=== PATIENT | female | born 1975 | race African-American/Black ===

== ENCOUNTER 2024-09-13 08:12 | Inpatient (IN) | payer BC, MEDICAID, MEDICARE ==
[~2024-09-13] VITALS: Ht 170.2 cm; Wt 80.3 kg
[2024-09-13 08:17] VITALS: O2SAT 99
[2024-09-13] MEDS: LEVETIRACETAM 500MG PREMIX 100 ML IV ONE ×2 (08:30→09:03)
[2024-09-13 09:12] LABS: BASOPHILS % 0.5 % (0.0-2.0); EOSINOPHILS % 0.4 % (0.0-5.0); HEMATOCRIT. 42.9 % (36.0-48.0); HEMOGLOBIN. 14.4 g/dL (12.0-16.0); LYMPHOCYTES % 18.9 % (20.0-50.0); MEAN PLATELET VOLUME 7.2 fl (7.4-10.4); MONOCYTES % 3.6 % (2.0-8.0); NEUTROPHILS % 76.6 % (40.0-76.0); PLATELET 262 x1000/uL (130-400); RED BLOOD CELL COUNT 4.60 mill/uL (4.2-5.4); RED CELL DISTRIBUTION WIDTH 14.4 % (11.6-14.6)
[2024-09-13 09:26] LABS: CREATININE 1.1 mg/dL (0.6-1.0)
[2024-09-13 09:27] LABS: UREA NITROGEN BLOOD 21 mg/dL (9-23)
[2024-09-13 09:28] LABS: ASPARTATE AMINOTRANSFERASE 16 IU/L (<34)
[2024-09-13 09:29] LABS: BILIRUBIN TOTAL 0.7 mg/dL (0.1-1.0); PROTEIN TOTAL 7.2 g/dL (6.0-8.3)
[2024-09-13 09:33] LABS: HCG SCREEN POSITIVE
[2024-09-13] MEDS ORDERED: DOCUSATE SODIUM 100MG CAPSULE PO PRN (13:00)
[2024-09-13] MEDS ORDERED: ACETAMINOPHEN 325MG TABLET PO PRN (13:00)
[2024-09-13] MEDS ORDERED: IPRATROPIUM/ALBUTEROL 0.5-3(2.5)MG/3ML NEB HHN PRN (13:00)
[2024-09-13] MEDS ORDERED: LORAZEPAM 2MG/ML UD SYRINGE IV PRN (13:00)
[2024-09-13 14:05] VITALS: BP 156/77; PULSE 45; RESP 16; TEMP 36.5292
[2024-09-13] MEDS: SODIUM CHLORIDE 0.9% 1,000 ML IV SCH (15:42)
[2024-09-13 16:00] VITALS: BP 130/74; PULSE 45; RESP 20; TEMP 36.7; O2SAT 99
[2024-09-13 18:45] LABS: PHOSPHORUS 2.6 mg/dL (2.5-4.9)
[2024-09-13 20:00] VITALS: BP 130/66; PULSE 42; RESP 20; TEMP 36.6; O2SAT 100
[2024-09-13 22:24] LABS: TROPONIN I HIGH SENSITIVITY 5 ng/L (3.0-34)
[2024-09-13] MEDS: ACETAMINOPHEN 325MG TABLET PO PRN (23:42)
[2024-09-14] VITALS: BP 134/74; PULSE 40; RESP 20; TEMP 36.6; O2SAT 99
[2024-09-14 01:31] LABS: INR 1.1
[2024-09-14] MEDS: BLOOD SUGAR DIAGNOSTIC STRIP TEST SCH (07:10)
[2024-09-14 07:42] LABS: T4 FREE 1.16 ng/dL (0.89-1.76)
[2024-09-14 07:45] LABS: CREATININE 0.9 mg/dL (0.6-1.0); PROTEIN TOTAL 6.7 g/dL (6.0-8.3); TRIGLYCERIDE 99 mg/dL (0-150); UREA NITROGEN BLOOD 20 mg/dL (9-23)
[2024-09-14 07:46] LABS: ASPARTATE AMINOTRANSFERASE 15 IU/L (<34); LDL CHOLESTEROL 142 mg/dL (5-100)
[2024-09-14 07:47] LABS: BILIRUBIN DIRECT 0.1 mg/dL (<=3.0); BILIRUBIN TOTAL 0.6 mg/dL (0.1-1.0); PHOSPHORUS 2.6 mg/dL (2.5-4.9)
[2024-09-14 07:57] LABS: BASOPHILS % 0.8 % (0.0-2.0); EOSINOPHILS % 0.8 % (0.0-5.0); HCG SCREEN INDETERMINATE; HEMATOCRIT. 39.9 % (36.0-48.0); HEMOGLOBIN. 13.8 g/dL (12.0-16.0); LYMPHOCYTES % 29.2 % (20.0-50.0); MEAN PLATELET VOLUME 7.4 fl (7.4-10.4); MONOCYTES % 7.3 % (2.0-8.0); NEUTROPHILS % 61.9 % (40.0-76.0); PLATELET 240 x1000/uL (130-400); RED BLOOD CELL COUNT 4.32 mill/uL (4.2-5.4); RED CELL DISTRIBUTION WIDTH 14.2 % (11.6-14.6)
[2024-09-14 08:00] VITALS: BP 122/70; PULSE 50; RESP 18; TEMP 36.1; O2SAT 97
[2024-09-14] MEDS: FOLIC ACID 1MG TABLET PO SCH (09:06)
[2024-09-14 11:13] LABS: ERYTHROCYTE SEDIMENTATION RATE 13 mm/hr (0-20)
[2024-09-14 12:00] VITALS: BP 120/73; PULSE 42; RESP 18; TEMP 35.9; O2SAT 97
[2024-09-14] MEDS: DEXTROSE 50% WATER 50ML SYRINGE IV PRN (12:47)
[2024-09-14 16:00] VITALS: BP 149/70; RESP 18; TEMP 36; O2SAT 98
[2024-09-14] MEDS ORDERED: LEVETIRACETAM 1,000MG in NACL 100ML PREMIX IV ONE (17:45)
[2024-09-14] MEDS: LEVETIRACETAM 1000MG PREMIX 100 ML IV SCH (18:00)
[2024-09-14 20:00] VITALS: BP 125/64; PULSE 42; RESP 20; TEMP 36.8; O2SAT 98
[2024-09-14] MEDS: METHYLPREDNISOLONE SOD SUCC 40MG/ML (ACT-O-VIAL) IV SCH (22:00)
[2024-09-14] MEDS: LEVETIRACETAM 500MG/5ML CUP PO SCH (23:25)
[2024-09-14] MEDS: HYDROXYCHLOROQUINE SULFATE 200MG TABLET PO SCH (23:25)
[2024-09-14] MEDS: PILOCARPINE HCL 5MG TABLET PO SCH (23:26)
[2024-09-14] MEDS: PILOCARPINE HCL 2% OPHTH DROPS 15ML BOTHEYE SCH (23:26)
[2024-09-14] MEDS: KETOROLAC 30MG/ML VIAL IV NR (23:28)
[2024-09-15] VITALS: BP 136/79; PULSE 42; RESP 20; TEMP 36.8; O2SAT 97
[2024-09-15 03:34] LABS: PROTEIN URINE RANDOM 8.0 mg/dL
[2024-09-15 03:37] LABS: *AMPHETAMINES SCREEN URINE NEGATIVE (NEGATIVE); *BARBITURATES SCREEN URINE NEGATIVE (NEGATIVE); *BENZODIAZEPINES SCREEN URINE NEGATIVE (NEGATIVE); *COCAINE SCREEN URINE NEGATIVE (NEGATIVE); CANNABINOID URINE SCREEN PRESUMPTIVE POSITIVE (NEGATIVE); CLARITY URINE CLEAR (CLEAR); COLOR URINE YELLOW (YELLOW); CREATININE URINE RANDOM 75.4 mg/dL; ECSTASY MDMA SCREEN URINE NEGATIVE (NEGATIVE); METHADONE URINE SCREEN NEGATIVE (NEGATIVE); OPIATES URINE SCREEN NEGATIVE (NEGATIVE); PHENCYCLIDINE URINE SCREEN NEGATIVE (NEGATIVE)
[2024-09-15 03:38] LABS: GLUCOSE URINE NEGATIVE (NEGATIVE); KETONES URINE 1+ (NEGATIVE); OCCULT BLOOD URINE NEGATIVE (NEGATIVE); PH URINE 6.5 (4.5-8.0); PROTEIN URINE NEGATIVE (NEGATIVE); SPECIFIC GRAVITY URINE 1.009 (1.005-1.030)
[2024-09-15 03:39] LABS: LEUKOCYTE ESTERASE URINE NEGATIVE (NEGATIVE); NITRITE URINE NEGATIVE (NEGATIVE); UROBILINOGEN URINE 1.0 E.U./dL (0.2-1.0)
[2024-09-15 04:00] VITALS: BP 131/68; PULSE 48; RESP 19; TEMP 36.7; O2SAT 96
[2024-09-15] MEDS ORDERED: GABA-529 MT (06:09)
[2024-09-15] MEDS ORDERED: METH2.5T MT (06:09)
[2024-09-15] MEDS ORDERED: HYDR200T80 MT (06:09)
[2024-09-15 08:00] VITALS: BP 103/62; PULSE 52; RESP 18; TEMP 36.5; O2SAT 97
[2024-09-15] MEDS: DICLOFENAC SODIUM 75MG DR TABLET PO SCH (09:09)
[2024-09-15] MEDS: LEVETIRACETAM 500MG TABLET PO SCH ×2 (09:09→21:48)
[2024-09-15] MEDS: FOLIC ACID 1MG TABLET PO SCH (09:09)
[2024-09-15] MEDS: PANTOPRAZOLE SODIUM 40 MG/VIAL IV SCH (11:00)
[2024-09-15 11:24] LABS: BASOPHILS % 0.6 % (0.0-2.0); EOSINOPHILS % 1.0 % (0.0-5.0); HEMATOCRIT. 41.2 % (36.0-48.0); HEMOGLOBIN. 14.0 g/dL (12.0-16.0); LYMPHOCYTES % 28.1 % (20.0-50.0); MEAN PLATELET VOLUME 7.5 fl (7.4-10.4); MONOCYTES % 7.0 % (2.0-8.0); NEUTROPHILS % 63.3 % (40.0-76.0); PLATELET 266 x1000/uL (130-400); RED BLOOD CELL COUNT 4.45 mill/uL (4.2-5.4); RED CELL DISTRIBUTION WIDTH 14.4 % (11.6-14.6)
[2024-09-15 11:39] LABS: CREATININE 1.0 mg/dL (0.6-1.0); UREA NITROGEN BLOOD 13 mg/dL (9-23)
[2024-09-15 12:00] VITALS: BP 135/72; PULSE 49; RESP 18; TEMP 36.6; O2SAT 98
[2024-09-15] MEDS ORDERED: NALOXONE HCL 0.4MG/ML VIAL IV PRN (12:45)
[2024-09-15] MEDS: HYDROCODONE/ACETAMINOPHEN 5/325MG TABLET PO PRN (12:48)
[2024-09-15 16:00] VITALS: BP 131/65; PULSE 51; RESP 18; TEMP 36.6
[2024-09-15 20:00] VITALS: BP 102/66; PULSE 51; RESP 20; TEMP 36.4; O2SAT 100
[2024-09-16] VITALS: BP 113/65; PULSE 56; RESP 19; TEMP 36.3; O2SAT 99
[2024-09-16 04:00] VITALS: BP 99/59; PULSE 58; RESP 19; TEMP 36.2; O2SAT 96
[2024-09-16] MEDS ORDERED: QUET150T20 (05:08)
[2024-09-16] MEDS ORDERED: QUET100T MT (05:08)
[2024-09-16] MEDS ORDERED: DULO60CA64 MT (05:08)
[2024-09-16] MEDS ORDERED: ERYT-139 MT (05:08)
[2024-09-16] MEDS ORDERED: PANT40TA51 PO (05:08)
[2024-09-16] MEDS ORDERED: NIFE10CA59 MT (05:08)
[2024-09-16] MEDS ORDERED: NITR0.4T49 SL (05:08)
[2024-09-16] MEDS ORDERED: FLUT12AE3 INH (05:08)
[2024-09-16] MEDS ORDERED: TC1C15 TP (05:08)
[2024-09-16] MEDS ORDERED: PRED5TAB PO (05:08)
[2024-09-16] MEDS ORDERED: FOLI-43 MT (05:08)
[2024-09-16] MEDS ORDERED: DIVA-75 PO (05:08)
[2024-09-16] MEDS ORDERED: TOPI-253 MT (05:08)
[2024-09-16] MEDS ORDERED: DULO60CA64 PO (05:08)
[2024-09-16] MEDS ORDERED: LEVO5TAB13 MT (05:08)
[2024-09-16] MEDS ORDERED: HYDR200T35 PO (05:08)
[2024-09-16] MEDS ORDERED: ROPI3TAB21 MT (05:08)
[2024-09-16] MEDS ORDERED: BENZ1TAB78 PO (05:08)
[2024-09-16] MEDS ORDERED: MELO-106 MT (05:08)
[2024-09-16 08:00] VITALS: BP 107/51; PULSE 52; RESP 18; TEMP 36.7; O2SAT 98
[2024-09-16] MEDS ORDERED: *PATIENT'S OWN MEDICATION STORAGE XX SCH (08:30)
[2024-09-16] MEDS ORDERED: FOLIC ACID 1MG TABLET PO SCH (09:30)
[2024-09-16 09:53] LABS: BASOPHILS % 0.6 % (0.0-2.0); EOSINOPHILS % 1.6 % (0.0-5.0); HEMATOCRIT. 43.0 % (36.0-48.0); HEMOGLOBIN. 14.5 g/dL (12.0-16.0); LYMPHOCYTES % 39.4 % (20.0-50.0); MEAN PLATELET VOLUME 7.5 fl (7.4-10.4); MONOCYTES % 10.0 % (2.0-8.0); NEUTROPHILS % 48.4 % (40.0-76.0); PLATELET 249 x1000/uL (130-400); RED BLOOD CELL COUNT 4.61 mill/uL (4.2-5.4); RED CELL DISTRIBUTION WIDTH 14.6 % (11.6-14.6)
[2024-09-16 10:19] LABS: CREATININE 1.0 mg/dL (0.6-1.0); UREA NITROGEN BLOOD 10 mg/dL (9-23)
[2024-09-16] MEDS: PREGABALIN 75MG CAPSULE PO SCH (11:00)
[2024-09-16] MEDS: TRIAMCINOLONE ACETONIDE 0.1% CREAM 15GM TOP SCH (11:00)
[2024-09-16 12:00] VITALS: BP 96/62; PULSE 64; RESP 18; TEMP 36.9; O2SAT 99
[2024-09-16] MEDS: METHOTREXATE SODIUM/PF 50 MG/2 ML VIAL IM SCH (14:32)
[2024-09-16 16:00] VITALS: BP 105/72; PULSE 52; RESP 18; TEMP 36.5; O2SAT 99
[2024-09-16 20:00] VITALS: BP 118/84; PULSE 55; RESP 18; O2SAT 99
[2024-09-16] MEDS: BUPROPION HCL 75MG TABLET PO SCH (21:00)
[2024-09-16] MEDS: SODIUM CHLORIDE 0.9% 500 ML IV ONE (23:47)
[2024-09-16] MEDS: LEVETIRACETAM 1000MG PREMIX 100 ML IV SCH (23:47)
[2024-09-17] VITALS: BP 97/52; PULSE 66; RESP 18; TEMP 36.4; O2SAT 100
[2024-09-17 04:00] VITALS: BP 83/48; PULSE 54; RESP 16; TEMP 36.1; O2SAT 52
[2024-09-17 06:15] LABS: G6PD RBC 4.62 x10E6/uL (3.77-5.28)
[2024-09-17 07:08] LABS: SJOGRENS ANTI SS-A 0.5 AI (0.0-0.9); SJOGRENS ANTI SS-B 2.0 AI (0.0-0.9)
[2024-09-17 08:00] VITALS: BP 115/67; PULSE 57; RESP 15; TEMP 35.2; O2SAT 97
[2024-09-17 09:12] LABS: ANTI-DNA DOUBLE STRANDED QUANT < 1 IU/mL (0-9); COMPLEMENT C3 157 mg/dL (82-167); COMPLEMENT C4 28 mg/dL (12-38)
[2024-09-17] MEDS: PREDNISONE 10MG TABLET PO SCH (11:22)
[2024-09-17 12:00] VITALS: BP 118/75; PULSE 58; RESP 16; TEMP 36.2; O2SAT 98
[2024-09-17 16:00] VITALS: BP_SYST 112; BP_SYST 118; BP_DIAS 62; BP_DIAS 75; PULSE 63; RESP 17; TEMP 36.2; O2SAT 96
[2024-09-17] MEDS: TOPIRAMATE 100MG TABLET PO SCH (17:38)
[2024-09-17] MEDS: QUETIAPINE FUMARATE 50MG TABLET PO SCH (17:39)
[2024-09-17 17:54] LABS: BASOPHILS % 0.2 % (0.0-2.0); EOSINOPHILS % 0.1 % (0.0-5.0); HEMATOCRIT. 44.9 % (36.0-48.0); HEMOGLOBIN. 15.0 g/dL (12.0-16.0); LYMPHOCYTES % 11.4 % (20.0-50.0); MEAN PLATELET VOLUME 8.6 fl (7.4-10.4); MONOCYTES % 0.8 % (2.0-8.0); NEUTROPHILS % 87.5 % (40.0-76.0); PLATELET 229 x1000/uL (130-400); RED BLOOD CELL COUNT 4.78 mill/uL (4.2-5.4); RED CELL DISTRIBUTION WIDTH 14.7 % (11.6-14.6)
[2024-09-17] MEDS: ONDANSETRON HCL 4MG/2ML INJ IV PRN (17:54)
[2024-09-17 18:13] LABS: CREATININE 0.8 mg/dL (0.6-1.0); UREA NITROGEN BLOOD 9 mg/dL (9-23)
[2024-09-17 18:14] LABS: B-HCG QUANTITATIVE 9 mIU/mL (<6)
[2024-09-17 18:15] LABS: ASPARTATE AMINOTRANSFERASE 24 IU/L (<34); BILIRUBIN TOTAL 0.5 mg/dL (0.1-1.0); PHOSPHORUS 2.9 mg/dL (2.5-4.9)
[2024-09-17 18:16] LABS: PROTEIN TOTAL 7.2 g/dL (6.0-8.3)
[2024-09-17 20:00] VITALS: BP 101/68; PULSE 76; RESP 18; TEMP 36.7; O2SAT 97
[2024-09-17] MEDS ORDERED: ROPINIROLE HCL 1MG TABLET PO SCH (21:00)
[2024-09-17] MEDS: DULOXETINE HCL 60MG DR CAPSULE PO SCH (21:49)
[2024-09-17] MEDS: METOCLOPRAMIDE HCL 10MG/2ML VIAL IV SCH (21:50)
[2024-09-17] MEDS: DIVALPROEX SODIUM 500MG DR TABLET PO SCH (21:50)
[2024-09-18] MEDS ORDERED: ALBU18HF2 IH (12:01)
[2024-09-18 13:07] LABS: ACTIN (SMOOTH MUSCLE) ANTIBODY 14 Units (0-19)
[2024-09-19 13:07] LABS: ANGIOTENSION CONVERTING ENZYME 51 U/L (14-82)
[2024-09-19 17:07] LABS: ANTI-CARDIOLIPIN AB IGG < 9 GPL U/mL (0-14); ANTI-CARDIOLIPIN AB IGM 19 MPL U/mL (0-12); G6PD QUANTITATIVE 289 (127-427)
[2024-09-20 13:11] LABS: ANTI-MYELOPEROXIDASE AB < 0.2 units (0.0-0.9); ANTI-PROTEINASE 3 ABS < 0.2 units (0.0-0.9)
[2024-09-20 17:10] LABS: ATYPICAL P-ANCA <1:20 titer (Neg:<1:20); CYTOPLASMIC C-ANCA <1:20 titer (Neg:<1:20); PERINUCLEAR P-ANCA <1:20 titer (Neg:<1:20)
[2024-09-21 17:07] LABS: RNP ANTIBODY < 0.2 AI (0.0-0.9); SMITH ANTIBODY < 0.2 AI (0.0-0.9)
[2024-09-22 15:11] LABS: ANA IFA Negative (.)
== END 2024-09-17 22:53 | disposition left against medical advice (07) | DRG 101 ==
LOC: ER 08:12 → 8WST 11:58 → EDBEDREQTM 12:05 → EDBEDREQ 12:05
PROVIDERS: ADMIT Internal Medicine; ATTEND Internal Medicine
DX: G40.909 Epilepsy, unspecified, not intractable, without status epilepticus (principal); I77.82 Antineutrophilic cytoplasmic antibody [ANCA] vasculitis; R00.1 Bradycardia, unspecified; M06.9 Rheumatoid arthritis, unspecified; E28.39 Other primary ovarian failure; K31.84 Gastroparesis; M32.9 Systemic lupus erythematosus, unspecified; F32.A Depression, unspecified; F41.9 Anxiety disorder, unspecified; Z91.148 Patient's other noncompliance with medication regimen for other reason; E11.43 Type 2 diabetes mellitus with diabetic autonomic (poly)neuropathy; K30 Functional dyspepsia; D64.9 Anemia, unspecified; G25.81 Restless legs syndrome; E11.649 Type 2 diabetes mellitus with hypoglycemia without coma; G89.4 Chronic pain syndrome; I50.9 Heart failure, unspecified; I11.0 Hypertensive heart disease with heart failure; Z79.899 Other long term (current) drug therapy; Z86.74 Personal history of sudden cardiac arrest; Z87.891 Personal history of nicotine dependence; Z53.29 Procedure and treatment not carried out because of patient's decision for other reasons
CPT/HCPCS: 36415; 71045; 76830; 76856; 80048; 80053; 80061; 80076; 80305; 81003; 82164; 82550; 82570; 82595; 82955; 82962; 83036; 83520; 83605; 83735; 83880; 84100; 84145; 84156; 84439; 84443; 84481; 84484; 84702; 84703; 85025; 85041; 85379; 85651; 86038; 86147; 86160; 86225; 86235; 86256; 86332; 93005; 93306; 93970; 99291; A4606; A6449; J1885; J1953; J2060; J2405; J2470; J2765; J2919; J7030; J7512; J9260

== ENCOUNTER 2024-09-18 00:46 | Inpatient (IN) | payer BC, MEDICAID ==
[~2024-09-18] VITALS: Ht 172.7 cm; Wt 75.0 kg
[~2024-09-18 00:46] MED LIST: BENZ1TAB78 PO; DIVA-75 PO; DULO60CA64 MT; DULO60CA64 PO; ERYT-139 MT; FLUT12AE3 INH; FOLI-43 MT; GABA-529 MT; HYDR200T35 PO; HYDR200T80 MT; LEVO5TAB13 MT; MELO-106 MT; METH2.5T MT; NIFE10CA59 MT; NITR0.4T49 SL; PANT40TA51 PO; PRED5TAB PO; QUET100T MT; QUET150T20; ROPI3TAB21 MT; TC1C15 TP; TOPI-253 MT
[2024-09-18] MEDS ORDERED: MIDAZOLAM HCL 2 MG/2 ML VIAL ONE (00:51)
[2024-09-18] MEDS ORDERED: NALOXONE HCL 1MG/ML 2ML VIAL ONE (00:58)
[2024-09-18] MEDS: NALOXONE HCL 1MG/ML 2ML VIAL IM ONE (01:06)
[2024-09-18 01:07] VITALS: O2SAT 100
[2024-09-18] MEDS: MIDAZOLAM HCL 2 MG/2 ML VIAL IM ONE (01:07)
[2024-09-18] MEDS: SODIUM CHLORIDE 0.9% 1,000 ML IV ONE (01:32)
[2024-09-18 01:50] LABS: BASOPHILS % 0.4 % (0.0-2.0); EOSINOPHILS % 0.0 % (0.0-5.0); HEMATOCRIT. 43.7 % (36.0-48.0); HEMOGLOBIN. 14.8 g/dL (12.0-16.0); LYMPHOCYTES % 11.2 % (20.0-50.0); MEAN PLATELET VOLUME 8.1 fl (7.4-10.4); MONOCYTES % 7.6 % (2.0-8.0); NEUTROPHILS % 80.8 % (40.0-76.0); PLATELET 266 x1000/uL (130-400); RED BLOOD CELL COUNT 4.73 mill/uL (4.2-5.4); RED CELL DISTRIBUTION WIDTH 14.9 % (11.6-14.6)
[2024-09-18 02:04] LABS: CREATININE 0.9 mg/dL (0.6-1.0)
[2024-09-18 02:05] LABS: ETHANOL BLOOD < 10 mg/dL (<10); UREA NITROGEN BLOOD 8 mg/dL (9-23)
[2024-09-18 02:06] LABS: ASPARTATE AMINOTRANSFERASE 40 IU/L (<34); TROPONIN I HIGH SENSITIVITY < 4 ng/L (3.0-34)
[2024-09-18 02:07] LABS: BILIRUBIN DIRECT 0.1 mg/dL (<=3.0); BILIRUBIN TOTAL 0.5 mg/dL (0.1-1.0); PROTEIN TOTAL 7.8 g/dL (6.0-8.3); VALPROIC ACID < 3.0 ug/mL (50-100)
[2024-09-18 04:13] LABS: TROPONIN I HIGH SENSITIVITY < 4 ng/L (3.0-34)
[2024-09-18] MEDS ORDERED: ONDANSETRON HCL 4MG/2ML INJ IV PRN (04:15)
[2024-09-18] MEDS ORDERED: IPRATROPIUM/ALBUTEROL 0.5-3(2.5)MG/3ML NEB HHN PRN (04:15)
[2024-09-18] MEDS ORDERED: SODIUM CHLORIDE 0.9% 1,000 ML IV SCH (04:15)
[2024-09-18] MEDS ORDERED: LORAZEPAM 2MG/ML UD SYRINGE IV PRN (04:15)
[2024-09-18 04:34] LABS: HCG SCREEN POSITIVE
[2024-09-18 05:40] VITALS: BP 140/88; PULSE 58; RESP 18; TEMP 36.6; O2SAT 100
[2024-09-18] MEDS: PILOCARPINE HCL 5MG TABLET PO SCH (06:39)
[2024-09-18 08:00] VITALS: BP 131/82; PULSE 79; RESP 18; TEMP 36.1; O2SAT 99
[2024-09-18] MEDS ORDERED: SODIUM POLYSTYRENE SULFONATE 15 G/60 ML BOT PO ONE (08:30)
[2024-09-18] MEDS ORDERED: IPRATROPIUM/ALBUTEROL 0.5-3(2.5)MG/3ML NEB HHN SCH (09:00)
[2024-09-18] MEDS ORDERED: LEVETIRACETAM 1,000MG in NACL 100ML PREMIX IV SCH (09:00)
[2024-09-18] MEDS ORDERED: DIVALPROEX SODIUM 500MG DR TABLET PO SCH (09:00)
[2024-09-18] MEDS: ENOXAPARIN 40MG/0.4ML SYR SUBCUT SCH (09:24)
[2024-09-18] MEDS: PANTOPRAZOLE SODIUM 40 MG/VIAL IV SCH (09:25)
[2024-09-18] MEDS: PREGABALIN 75MG CAPSULE PO SCH (09:26)
[2024-09-18] MEDS: PREDNISONE 10MG TABLET PO SCH (09:27)
[2024-09-18] MEDS: HYDROXYCHLOROQUINE SULFATE 200MG TABLET PO SCH (09:27)
[2024-09-18] MEDS: TOPIRAMATE 100MG TABLET PO SCH (09:28)
[2024-09-18] MEDS: SODIUM ZIRCONIUM CYCLOSILICATE 10GM/PACKET PO SCH (09:30)
[2024-09-18] MEDS: LEVETIRACETAM 1000MG PREMIX 100 ML IV SCH (09:31)
[2024-09-18] MEDS: DICLOFENAC SODIUM 75MG DR TABLET PO SCH (09:32)
[2024-09-18 12:00] VITALS: BP 122/77; PULSE 53; RESP 17; TEMP 36.4; O2SAT 98
[2024-09-18] MEDS ORDERED: ALBU18HF2 IH (12:01)
[2024-09-18] MEDS ORDERED: *PATIENT'S OWN MEDICATION STORAGE XX SCH (15:00)
[2024-09-18] MEDS ORDERED: ACETAMINOPHEN 325MG TABLET PO PRN ×2 (15:15)
[2024-09-18] MEDS: HYDROCODONE/ACETAMINOPHEN 5/325MG TABLET PO PRN (15:30)
[2024-09-18] MEDS ORDERED: NALOXONE HCL 0.4MG/ML VIAL IV PRN (15:30)
[2024-09-23] MEDS ORDERED: METHOTREXATE SODIUM/PF 50 MG/2 ML VIAL IM NR (09:00)
== END 2024-09-18 18:40 | disposition left against medical advice (07) | DRG 101 ==
LOC: ER 00:46 → EDBEDREQTM 03:37 → EDBEDREQ 03:37 → ENRESERV 04:44 → 6WST 05:39
PROVIDERS: ADMIT Hospitalist; ATTEND Hospitalist
DX: G40.909 Epilepsy, unspecified, not intractable, without status epilepticus (principal); E28.39 Other primary ovarian failure; E87.5 Hyperkalemia; G25.81 Restless legs syndrome; K31.84 Gastroparesis; M32.9 Systemic lupus erythematosus, unspecified; M35.00 Sjogren syndrome, unspecified; F32.A Depression, unspecified; F41.9 Anxiety disorder, unspecified; Z53.29 Procedure and treatment not carried out because of patient's decision for other reasons; R74.8 Abnormal levels of other serum enzymes; R00.1 Bradycardia, unspecified; T50.995A Adverse effect of other drugs, medicaments and biological substances, initial encounter; Z79.899 Other long term (current) drug therapy; Z91.148 Patient's other noncompliance with medication regimen for other reason; Y92.89 Other specified places as the place of occurrence of the external cause
CPT/HCPCS: 36415; 71045; 80048; 80076; 80165; 80320; 82550; 82962; 84132; 84484; 84703; 85025; 99285; G0378; J1650; J1953; J2250; J2312; J2470; J7030; J7512; G0480